=== PATIENT | male | born 1960 ===

== ENCOUNTER 2018-12-05 11:39 | Outpatient (CLI) | payer OTHER | END 2018-12-05 11:42 | disposition home or self-care (01) | LOC: SONOGRAMA 11:39 | DX: N17.8 Other acute kidney failure (principal) ==

== ENCOUNTER 2019-03-29 08:42 | Outpatient (CLI) | payer OTHER | END 2019-03-29 08:44 | disposition home or self-care (01) | LOC: SONOGRAMA 08:42 → MAMO-SONO 08:45 | DX: R10.84 Generalized abdominal pain (principal) ==

== ENCOUNTER 2019-07-05 12:18 | Outpatient (CLI) | payer OTHER | END 2019-07-05 12:28 | disposition home or self-care (01) | LOC: TOM 12:18 | DX: F17.210 Nicotine dependence, cigarettes, uncomplicated (principal) ==

== ENCOUNTER 2023-12-05 09:39 | Outpatient (CLI) | payer OTHER | END 2023-12-05 09:47 | disposition home or self-care (01) | LOC: TOM 09:39 | PROVIDERS: ATTEND Internal Medicine | DX: I10 Essential (primary) hypertension (principal) ==

== ENCOUNTER 2023-12-29 13:48 | Outpatient (CLI) | payer OTHER | END 2023-12-29 13:54 | disposition home or self-care (01) | LOC: RAD 13:48 | DX: G09 Sequelae of inflammatory diseases of central nervous system (principal); Z12.89 Encounter for screening for malignant neoplasm of other sites; Z12.31 Encounter for screening mammogram for malignant neoplasm of breast ==

== ENCOUNTER 2024-01-01 12:11 | Outpatient (CLI) | payer OTHER | END 2024-01-01 12:22 | disposition home or self-care (01) | LOC: MRI 12:11 | DX: G09 Sequelae of inflammatory diseases of central nervous system (principal); Z12.89 Encounter for screening for malignant neoplasm of other sites; Z12.31 Encounter for screening mammogram for malignant neoplasm of breast | CPT/HCPCS: 70553 ==

== ENCOUNTER 2024-04-29 12:44 | Outpatient (CLI) | payer OTHER | END 2024-04-29 12:56 | disposition home or self-care (01) | LOC: SONOGRAMA 12:44 | PROVIDERS: ATTEND Orthopaedic Surgery | DX: M75.111 Incomplete rotator cuff tear or rupture of right shoulder, not specified as traumatic (principal) ==